=== PATIENT | female | born 1950 | race Caucasian/White ===

== ENCOUNTER 2020-08-31 08:36 | Inpatient (IN) | payer MEDICARE, OTHER ==
[~2020-08-31] VITALS: Ht 162.6 cm; Wt 90.7 kg
[~2020-08-31 08:36] MED LIST: DICLOFENAC SOD100 GM TP; ELIQUIS5 MG PO; ESCITALOPRAM OX10 MG PO; FARXIGA10 MG PO; FEMARA2.5 MG PO; GABAPENTIN300 MG PO; LANTUS SOL100 UNIT/1 SQ; LEVOTHYROXINE75 MCG PO; LOSARTAN POTASS50 MG PO; METFORMIN HCL1000 MG PO; NOVOLOG FL100 UNIT/1 SC; OMEPRAZOLE20 MG PO; VICTOZA 1818 MG/3 ML SC; ZOCOR40 MG PO
[2020-08-31 10:37] LABS: HEMOGLOBIN 12.6 gm/dl (12.3-15.3); RED BLOOD COUNT 4.19 M/UL (4.00-5.10); WHITE BLOOD COUNT 8.4 K/UL (4.5-11.0)
[2020-08-31 10:58] LABS: BUN/CREATININE RATIO 22 (0-10)
[2020-08-31] MEDS ORDERED: BENADRYL 50MG C50 MG PO (17:11)
[2020-09-01 06:06] LABS: HEMOGLOBIN 12.1 gm/dl (12.3-15.3); RED BLOOD COUNT 4.03 M/UL (4.00-5.10); WHITE BLOOD COUNT 6.8 K/UL (4.5-11.0)
[2020-09-01 06:26] LABS: BUN/CREATININE RATIO 26 (0-10)
[2020-09-02 06:25] LABS: BUN/CREATININE RATIO 20 (0-10)
[2020-09-03 04:30] LABS: WHITE BLOOD COUNT 6.2 K/UL (4.5-11.0)
[2020-09-03 04:36] LABS: HEMOGLOBIN 14.5 gm/dl (12.3-15.3); RED BLOOD COUNT 4.86 M/UL (4.00-5.10)
[2020-09-03 04:46] LABS: BUN/CREATININE RATIO 19 (0-10)
[2020-09-04 06:27] LABS: HEMOGLOBIN 11.9 gm/dl (12.3-15.3); RED BLOOD COUNT 3.98 M/UL (4.00-5.10)
[2020-09-04 06:40] LABS: BUN/CREATININE RATIO 19 (0-10)
[2020-09-04] MEDS ORDERED: ZYVOX600 MG PO (08:52)
[2020-09-04] MEDS ORDERED: CIPRO500 MG PO (08:52)
== END 2020-09-04 11:04 | disposition home or self-care (01) | DRG 638 ==
LOC: ER1 08:36 → CDU 11:46 → MED SURG 4 11:46
PROVIDERS: Internal Medicine; Physician Assistant; ADMIT Internal Medicine
DX: E11.628 Type 2 diabetes mellitus with other skin complications (principal); L03.114 Cellulitis of left upper limb; I10 Essential (primary) hypertension; E78.5 Hyperlipidemia, unspecified; Z96.653 Presence of artificial knee joint, bilateral; E66.01 Morbid (severe) obesity due to excess calories; E11.65 Type 2 diabetes mellitus with hyperglycemia; Z20.822 Contact with and (suspected) exposure to COVID-19; Z86.718 Personal history of other venous thrombosis and embolism; Z87.442 Personal history of urinary calculi; Z85.3 Personal history of malignant neoplasm of breast; Z90.13 Acquired absence of bilateral breasts and nipples; Z88.0 Allergy status to penicillin; Z88.1 Allergy status to other antibiotic agents; Z91.041 Radiographic dye allergy status; Z83.3 Family history of diabetes mellitus; Z82.49 Family history of ischemic heart disease and other diseases of the circulatory system; Z84.1 Family history of disorders of kidney and ureter; Z79.4 Long term (current) use of insulin; Z90.49 Acquired absence of other specified parts of digestive tract; Z90.710 Acquired absence of both cervix and uterus; Z98.890 Other specified postprocedural states; Z68.34 Body mass index [BMI] 34.0-34.9, adult
CPT/HCPCS: 36415; 73030; 73200; 80048; 80053; 82962; 83036; 85025; 85027; 85379; 85652; 86140; 93971; 96374; 99284; J0696; J1335; J1650; J2020; U0002

== ENCOUNTER 2021-04-10 01:12 | Observation (INO) | payer MEDICARE, OTHER ==
[~2021-04-10] VITALS: Ht 162.6 cm; Wt 86.2 kg
[~2021-04-10 01:12] MED LIST changes: +BENADRYL 50MG C50 MG PO; +CIPRO500 MG PO; -NOVOLOG FL100 UNIT/1 SC; +NOVOLOG FL100 UNIT/1 SQ; +ZYVOX600 MG PO
[2021-04-10 03:46] LABS: RED BLOOD COUNT 4.69 M/UL (4.00-5.10); WHITE BLOOD COUNT 7.9 K/UL (4.5-11.0)
[2021-04-10 04:05] LABS: BUN/CREATININE RATIO 20 (0-10)
[2021-04-10] MEDS ORDERED: ONDANSETRON HCL8 MG PO (11:43)
[2021-04-10] MEDS ORDERED: AMLODIPINE BES2.5 MG PO (11:44)
[2021-04-10] MEDS ORDERED: ESCITALOPRAM OX10 MG PO (11:44)
[2021-04-10] MEDS ORDERED: MELATONIN5 M2 PO (11:44)
[2021-04-10] MEDS ORDERED: ARTHRITIS PAIN650 M1 PO (11:45)
[2021-04-10] MEDS ORDERED: SULFAMETHOXAZO1 EACH PO (15:35)
== END 2021-04-10 19:30 | disposition home or self-care (01) ==
LOC: ER1 01:12 → CDU 04:53 → MED SURG 4 07:26
PROVIDERS: Emergency Medicine; ADMIT Internal Medicine
DX: I48.0 Paroxysmal atrial fibrillation (principal); Z20.822 Contact with and (suspected) exposure to COVID-19; I10 Essential (primary) hypertension; E78.5 Hyperlipidemia, unspecified; E11.9 Type 2 diabetes mellitus without complications; E03.9 Hypothyroidism, unspecified; F32.A Depression, unspecified; W22.8XXA Striking against or struck by other objects, initial encounter; W18.30XA Fall on same level, unspecified, initial encounter; Z79.01 Long term (current) use of anticoagulants; Z79.4 Long term (current) use of insulin; Z79.84 Long term (current) use of oral hypoglycemic drugs; Z79.899 Other long term (current) drug therapy; Z85.3 Personal history of malignant neoplasm of breast; Z86.718 Personal history of other venous thrombosis and embolism; Z88.0 Allergy status to penicillin; Z88.1 Allergy status to other antibiotic agents; Z88.2 Allergy status to sulfonamides; Z88.8 Allergy status to other drugs, medicaments and biological substances; Z91.041 Radiographic dye allergy status
CPT/HCPCS: ECHO; 36415; 70450; 70486; 70551; 72125; 80048; 81001; 82550; 82553; 82962; 84484; 85025; 93005; 93306; 93880; 97161; 99285; G0378; U0002